=== PATIENT | male | born 1980 ===

== ENCOUNTER 2020-08-06 15:01 | Outpatient (CLI) | payer OTHER | END 2020-08-06 16:01 | disposition home or self-care (01) | LOC: PPH VACUNA 15:01 | DX: Z23 Encounter for immunization (principal) ==

== ENCOUNTER 2020-11-23 10:52 | Outpatient (CLI) | payer OTHER | END 2020-11-23 16:09 | disposition home or self-care (01) | LOC: LAB 10:52 | PROVIDERS: ATTEND Emergency Medicine Pediatric Emergency Medicine | DX: Z03.818 Encounter for observation for suspected exposure to other biological agents ruled out (principal) ==

== ENCOUNTER 2021-04-12 10:33 | Outpatient (CLI) | payer OTHER | END 2021-04-12 16:59 | disposition home or self-care (01) | LOC: LAB 10:33 | DX: Z03.818 Encounter for observation for suspected exposure to other biological agents ruled out (principal) ==

== ENCOUNTER 2021-07-01 14:07 | Outpatient (CLI) | payer OTHER | END 2021-07-01 14:08 | disposition home or self-care (01) | LOC: LAB 14:07 | PROVIDERS: ATTEND Obstetrics & Gynecology | DX: J06.9 Acute upper respiratory infection, unspecified (principal); Z03.818 Encounter for observation for suspected exposure to other biological agents ruled out ==